=== PATIENT | female | born 1995 | race Caucasian/White ===

== ENCOUNTER 2017-10-15 12:18 | Emergency (ER) | payer SELFPAY ==
[~2017-10-15] VITALS: Ht 162.6 cm; Wt 64.7 kg
[2017-10-15 12:41] VITALS: BP 125/78
[2017-10-15 14:29] LABS: HCG UR LOT HCG7030192
[2017-10-15 14:51] LABS: HCG UR OBC PASS
== END 2017-10-16 ==
LOC: ED 10-16 08:18
DX: A59.01 Trichomonal vulvovaginitis (principal); Z76.0 Encounter for issue of repeat prescription; F32.9 Major depressive disorder, single episode, unspecified
CPT/HCPCS: 81001; 81025; 87086; 87210; 87491; 87591; 87808; 99284